=== PATIENT | female | born 1975 | race Two or more races ===

== ENCOUNTER 2023-04-26 18:22 | Emergency (ER) | payer OTHER ==
[~2023-04-26] VITALS: Ht 167.6 cm; Wt 81.8 kg
[2023-04-26] MEDS ORDERED: KETOROLAC TROMETH 60MG/2ML VIAL IM ONE (18:30)
[2023-04-26] MEDS ORDERED: HYDROmorphone HCL 2 MG/ML VL/or syr IM ONE (18:30)
[2023-04-26] MEDS ORDERED: IBUP200T76 PO ×2 (20:26→20:27)
[2023-04-26] MEDS ORDERED: HYDR-4798 PO ×2 (20:26→20:27)
[2023-04-26 20:44] VITALS: BP 133/97; PULSE 80; RESP 18; TEMP 96.8; O2SAT 96
== END 2023-04-26 20:47 | disposition home or self-care (01) ==
LOC: EDBD 18:22 → ER 18:22
DX: S93.402A Sprain of unspecified ligament of left ankle, initial encounter (principal); V43.52XA Car driver injured in collision with other type car in traffic accident, initial encounter; Y93.89 Activity, other specified; Y92.410 Unspecified street and highway as the place of occurrence of the external cause; Y99.8 Other external cause status
CPT/HCPCS: 29515; 73600; 96372; 99284; J1170; J1885